=== PATIENT | male | born 1980 | race Caucasian/White ===

== ENCOUNTER → 2018-02-27 | Outpatient (CLI) | payer BC ==
--- NOTE | 2018-02-27 07:58 | MR ---
EXAMINATION TYPE: MR knee LT wo con DATE OF EXAM: 02/27/2018 COMPARISON: NONE HISTORY: Pain in left knee per order. Inner knee pain and locking sensation for couple months per pat ient. TECHNIQUE: Multiplanar, multisequence images of the knee is performed without IV contrast. FINDINGS: MEDIAL MENISCUS: Anterior horn is intact without tear. Oblique increased signal posterior horn of med ial meniscus is seen sagittal image 25, there is additional linear signal with fraying along the infe rior articular surface on this image. LATERAL MENISCUS: Anterior and posterior horns are intact without tear. Some lateral extrusion of lat eral meniscus is seen coronal image 19. CRUCIATE LIGAMENTS: The anterior and posterior cruciate ligaments are intact. Posterior cruciate liga ment has a wavy contour. COLLATERAL LIGAMENTS: The medial collateral ligament and lateral collateral ligament complex are inta ct and unremarkable. EXTENSOR MECHANISM: Visualized quadriceps and patellar tendons are intact. Some mild edema seen in di stal quadriceps tendon. EFFUSION: Small to tiny suprapatellar joint effusion. POPLITEAL CYST: No popliteal/schultz cyst. TRICOMPARTMENT SPACES: Mild tricompartment joint space loss is present. No significant spurring is se en. CARTILAGE: Tricompartment articular cartilage is preserved. No significant chondrolysis patella is no nat[place]. BONE MARROW SIGNAL: There is roughly 1.6 cm focus of heterogeneous increased T2 signal posterior medi al aspect of the distal lateral femoral condyle seen best sagittal image 13 and axial image 16. OTHER: No additional significant abnormality is appreciated. IMPRESSION: 1. Small 1 to 2 cm focus of osseous contusion and or bone marrow edema posterior medial aspect of the distal lateral femoral condyle sparing the inferior articular surface. 2. Oblique full-thickness tear posterior horn of medial meniscus. 3. Mild tricompartment degenerative changes as detailed above.
== END | disposition home or self-care (01) ==
LOC: RADMRIMAIN 06:57
PROVIDERS: ATTEND Family Medicine
DX: S83.242A Other tear of medial meniscus, current injury, left knee, initial encounter (principal); M17.12 Unilateral primary osteoarthritis, left knee